=== PATIENT | female | born 1990 | race Caucasian/White ===

== ENCOUNTER 2020-10-02 08:36 | Inpatient (IN) | payer OTHER ==
[~2020-10-02 08:36] MED LIST: PERCOCET 5-3251 EACH PO; PRENATAL MULTI1 EAC4 PO
[2020-10-02 09:35] LABS: HCT 35.3 % (37.0-47.0); HGB 11.5 g/dl (12.5-16.0); MCH 28.7 pg (25.0-31.0); MCHC 32.6 g/dL (32.0-36.0); MPV 10.5 fL (6.0-9.5); RBC 4.01 M/uL (4.20-5.40); RDW 14.2 % (11.5-14.0); WBC 8.7 K/uL (4.0-10.5)
[2020-10-02 14:57] LABS: BILIRUBIN NEGATIVE (NEGATIVE); BLOOD NEGATIVE Ery/uL (NEGATIVE); CLARITY CLEAR (CLEAR); COLOR YELLOW (YELLOW); GLUCOSE (U) NORMAL (NORMAL); LEUKOCYTES NEGATIVE Leu/uL (NEGATIVE); NITRITE NEGATIVE (NEGATIVE); PROTEIN NEGATIVE (NEGATIVE); SPECIFIC GRAVITY 1.015 (1.001-1.030); UROBILINOGEN 0.2 mg/dL (0.2-1.0)
[2020-10-03 06:24] LABS: HCT 31.2 % (37.0-47.0); MCH 28.9 pg (25.0-31.0); MCHC 32.1 g/dL (32.0-36.0); MCV 90.2 fL (78.0-100.0); MPV 10.8 fL (6.0-9.5); RBC 3.46 M/uL (4.20-5.40); RDW 14.4 % (11.5-14.0); WBC 8.6 K/uL (4.0-10.5)
[2020-10-04] MEDS ORDERED: MOTRIN600 MG PO (08:13)
[2020-10-04] MEDS ORDERED: PRENATAL FORMU1 EACH PO (08:13)
[2020-10-04] MEDS ORDERED: PERCOCET 5-3251 EACH PO (08:13)
[2020-10-04] MEDS ORDERED: ORTHO MICRONO0.35 MG PO (08:13)
[2020-10-04] MEDS ORDERED: FEOSOL325 MG PO (08:13)
[2020-10-04] MEDS ORDERED: COLACE100 MG PO (08:13)
== END 2020-10-04 10:44 | disposition home or self-care (01) | DRG 788 ==
LOC: FOB 08:36
PROVIDERS: ADMIT Obstetrics & Gynecology
PROC: 10D00Z1 Extraction of Products of Conception, Low, Open Approach (ICD-10-PCS; principal; 2020-10-02 10:00)
DX: O34.211 Maternal care for low transverse scar from previous cesarean delivery (principal); Z3A.39 39 weeks gestation of pregnancy; Z37.0 Single live birth; O99.820 Streptococcus B carrier state complicating pregnancy; O99.343 Other mental disorders complicating pregnancy, third trimester; F41.8 Other specified anxiety disorders; O99.013 Anemia complicating pregnancy, third trimester; Z20.822 Contact with and (suspected) exposure to COVID-19
CPT/HCPCS: 36415; 81003; 86850; 86900; 86901; J0690; J1200; J1885; J2274; J2370; J2405; J3010; J7120; U0002